=== PATIENT | female | born 1995 | race Caucasian/White ===

== ENCOUNTER 2020-07-28 19:51 | Inpatient (IN) ==
[2020-07-28] MEDS ORDERED: *HR* Nalbuphine 10 MG/ML AMPUL IV PRN (20:11)
[2020-07-28] MEDS ORDERED: Lidocaine 1% 20 ML MDV INFILT PRN (20:11)
[2020-07-28] MEDS ORDERED: Metoclopramide 10 MG/2 ML VIAL IVP PRN (20:11)
[2020-07-28] MEDS ORDERED: Famotidine 20 MG/2 ML VIAL IVP PRN (20:11)
[2020-07-28] MEDS ORDERED: miSOPROStoL 25 MCG TABLET PO PRN (20:11)
[2020-07-28] MEDS ORDERED: Naloxone 0.4 MG/ML INJ IVP PRN (20:11)
[2020-07-28 21:00] LABS: Basophils % 0.4 %; Eosinophils # 0.1 K/mcL (0.0-0.6); Eosinophils % 0.7 %; Hematocrit 32.9 % (35.3-44.9); Hemoglobin 10.2 g/dL (11.5-15.4); Immature Granulocytes % 0.4 % (0-4); Lymphocytes # 1.7 K/mcL (0.6-4.6); Lymphocytes % 20.6 %; Mean Corpuscular Hemoglobin 26.2 pg (28.0-33.3); Mean Corpuscular Volume 84.4 fL (83.0-100.0); Mean Platelet Volume 11.9 fL (9.4-12.4); Monocytes # 0.7 K/mcL (0.0-1.3); Neutrophils # 5.8 K/mcL (1.6-8.9); Platelet Count 203 K/mcL (140-400); Segmented Neutrophils % 69.9 %; White Blood Count 8.2 K/mcL (4.3-11.1)
[2020-07-28 21:10] LABS: Amphetamine Screen,Urine Negative ng/mL (Cutoff=1000); Barbiturate Screen,Urine Negative ng/mL (Cutoff=200); Benzodiazepines Screen,Urine Negative ng/mL (Cutoff=200); Cannabinoid Screen,Urine Negative ng/mL (Cutoff = 50); Cocaine Screen,Urine Negative ng/mL (Cutoff= 300); Opiate Screen,Urine Negative ng/mL (Cutoff=300); Phencyclidine Screen,Urine Negative ng/mL (Cutoff=25)
[2020-07-28 21:35] LABS: Influenza A PCR Negative (Negative); Influenza B PCR Negative (Negative); Resp. Syncytial Virus PCR Negative (Negative)
[2020-07-28 21:39] LABS: SARS-CoV-2 by PCR (In House) Negative (Negative)
[2020-07-28] MEDS: ursodioL 300 MG CAPSULE PO SCH (22:47)
[2020-07-29] MEDS: Ondansetron 4 MG/2 ML VIAL IVP PRN (03:47)
[2020-07-29] MEDS ORDERED: Acetaminophen 325 MG TABLET PO ONE (06:44)
[2020-07-29] MEDS: Ringers Solution, Lactated 1,000 ML IVC SCH ×3 (07:30→08:43)
[2020-07-29] MEDS: ursodioL 300 MG CAPSULE PO SCH ×2 (07:50→21:57)
[2020-07-29] MEDS: Oxytocin 20 units/ LR 1000 mL 20 UNIT/1,000 ML BAG IVC SCH (08:44)
[2020-07-30] MEDS: Ondansetron 4 MG/2 ML VIAL IVP PRN (02:36)
[2020-07-30] MEDS ORDERED: Ropivacaine/PF 0.2% 20 ML VIAL EP ONE (04:10)
[2020-07-30] MEDS ORDERED: Naloxone 0.4 MG/ML INJ IVP PRN (04:10)
[2020-07-30] MEDS ORDERED: Ondansetron 4 MG/2 ML VIAL IVP PRN (04:10)
[2020-07-30] MEDS ORDERED: EPHEDrine 50 MG/ML VIAL IVP PRN (04:10)
[2020-07-30] MEDS ORDERED: Epidural Premix (fent/bupiv) 110 ML EP SCH (04:15)
[2020-07-30] MEDS ORDERED: Ropivacaine/PF 0.2% 20 ML VIAL ONE (04:17)
[2020-07-30] MEDS: Ringers Solution, Lactated 1,000 ML IVC SCH (08:12)
[2020-07-30] MEDS: Oxytocin 20 units/ LR 1000 mL 20 UNIT/1,000 ML BAG IVC SCH (08:20)
[2020-07-30] MEDS: ursodioL 300 MG CAPSULE PO SCH (09:03)
[2020-07-30] MEDS ORDERED: D5% in 0.45% NACL 1,000 ML IVC SCH (09:45)
[2020-07-30] MEDS ORDERED: Penicillin G Potassium 5,000,000 UNIT in 0.9 % Sodium Chloride Mini Bag 100 ML IVPB ONE (11:27)
[2020-07-30] MEDS ORDERED: Acetaminophen 325 MG TABLET PO ONE (11:51)
[2020-07-30] MEDS ORDERED: Benzocaine/Menthol 56 GM AEROSOL SPRAY TP PRN (15:08)
[2020-07-30] MEDS ORDERED: Measles/Mumps/Rubella Vacc 0.5 ML VIAL SQ PRN (15:08)
[2020-07-30] MEDS ORDERED: Oxytocin 20 units/ LR 1000 mL 20 UNIT/1,000 ML BAG IVC SCH (15:08)
[2020-07-30] MEDS ORDERED: Acetaminophen 325 MG TABLET PO PRN (15:08)
[2020-07-30] MEDS ORDERED: Penicillin G Potassium 2,500,000 UNIT/105 ML MLS IVPB SCH (15:30)
[2020-07-31 05:46] LABS: Basophils % 0.3 %; Eosinophils # 0.1 K/mcL (0.0-0.6); Eosinophils % 0.6 %; Hematocrit 31.5 % (35.3-44.9); Hemoglobin 9.9 g/dL (11.5-15.4); Immature Granulocytes % 0.3 % (0-4); Lymphocytes % 16.4 %; Mean Corpuscular HGB Conc 31.4 g/dL (31.6-35.5); Mean Corpuscular Hemoglobin 26.5 pg (28.0-33.3); Mean Corpuscular Volume 84.2 fL (83.0-100.0); Mean Platelet Volume 12.2 fL (9.4-12.4); Monocytes # 1.2 K/mcL (0.0-1.3); Monocytes % 9.5 %; Neutrophils # 8.8 K/mcL (1.6-8.9); Platelet Count 179 K/mcL (140-400); Red Blood Count 3.74 M/mcL (3.82-4.97); Segmented Neutrophils % 72.9 %; White Blood Count 12.1 K/mcL (4.3-11.1)
[2020-07-31] MEDS ORDERED: Prenatal Vit/FA 1 EACH TABLET PO SCH (09:00)
[2020-07-31 11:50] VITALS: BP 134/86
== END 2020-07-31 15:25 | disposition home or self-care (01) | DRG 805 ==
LOC: 1NENULAB 19:51 → 1NENUOBS 07-30 14:41
PROVIDERS: ADMIT Obstetrics & Gynecology; ATTEND Obstetrics & Gynecology